=== PATIENT | female | born 1995 ===

== ENCOUNTER 2017-04-04 02:34 | Emergency (ER) | payer OTHER ==
[2017-04-04 03:04] VITALS: BP 115/65; PULSE 103; RESP 16; TEMP 98.2; O2SAT 99
--- NOTE | 2017-04-04 03:42 | ED PDOC ---
HPI: CCC, URI, Sore Throat Time Seen by Provider: 04/04/17 02:54 Chief Complaint (Nursing): ENT Problem Chief Complaint (Provider): Sore throat History Per: Patient Additional Complaint(s): Pt ambulated to ER for eval of cough and throat pain x 1 week Past Medical History Reviewed: Nursing Documentation, Vital Signs Vital Signs: Last Vital Signs Temp 98.2 F 04/04/17 02:59 Pulse 103 H 04/04/17 02:59 Resp 16 04/04/17 02:59 BP 115/65 04/04/17 02:59 Pulse Ox 99 04/04/17 03:42 - Medical History PMH: No Chronic Diseases - Surgical History Surgical History: No Surg Hx - Family History Family History: States: No Known Family Hx - Living Arrangements Living Arrangements: With Family - Social History Current smoker - smoking cessation education provided: No - Home Medications Home Medications: Ambulatory Orders Medication Instructions Recorded predniSONE [predniSONE Tab] 10 mg PO DAILY #10 tab 04/04/17 - Allergies Allergies/Adverse Reactions: Allergies Allergy/AdvReac Type Severity Reaction Status Date / Time No Known Allergies Allergy Verified 11/21/15 02:15 Review of Systems ROS Statement: Except As Marked, All Systems Reviewed And Found Negative ENT: Positive for: Throat Pain Physical Exam - Reviewed Nursing Documentation Reviewed: Yes Vital Signs Reviewed: Yes - Physical Exam Appears: Positive for: Well, Non-toxic, No Acute Distress Head Exam: Positive for: ATRAUMATIC, NORMAL INSPECTION, NORMOCEPHALIC Skin: Positive for: Normal Color, Warm, DRY Eye Exam: Positive for: Normal appearance, EOMI, PERRL ENT: Positive for: TM Is/Are (WNL), Pharyngeal Erythema. Negative for: Tonsillar Exudate, Tonsillar Swelling Neck: Positive for: Normal, Painless ROM Cardiovascular/Chest: Positive for: Regular Rate, Rhythm Respiratory: Positive for: CNT, Normal Breath Sounds Gastrointestinal/Abdominal: Positive for: Normal Exam, Bowel Sounds, Soft Back: Positive for: Normal Inspection Extremity: Positive for: Normal ROM Neurologic/Psych: Positive for: Alert, Oriented - ECG O2 Sat by Pulse Oximetry: 99 Medical Decision Making Medical Decision Making: rapid strep (-) Disposition - Clinical Impression Clinical Impression: Upper respiratory infection, Pharyngitis - Patient ED Disposition Is Patient to be Admitted: No - Disposition Disposition: Routine/Home Disposition Time: 05:02 Condition: STABLE Prescriptions: predniSONE [predniSONE Tab] 10 mg PO DAILY #10 tab Instructions: Pharyngitis (ED), Upper Respiratory Infection (ED) Forms: [employer] ([place]i)
== END 2017-04-04 05:01 | disposition home or self-care (01) ==
LOC: H.ER 02:34
DX: J06.9 Acute upper respiratory infection, unspecified (principal); J02.9 Acute pharyngitis, unspecified